=== PATIENT | male | born 1940 | race Caucasian/White ===

== ENCOUNTER 2019-04-12 10:30 | Outpatient (CLI) | payer MEDICARE, BC ==
[2014-04-12 10:40] VITALS: O2SAT 94
== END 2019-04-12 10:31 | disposition home or self-care (01) | DRG 556 ==
LOC: CONVCARE 10:30
PROVIDERS: ATTEND Orthopaedic Surgery
DX: M25.551 Pain in right hip (principal); Z96.642 Presence of left artificial hip joint; M16.11 Unilateral primary osteoarthritis, right hip
CPT/HCPCS: 73521

== ENCOUNTER 2019-04-26 11:30 | Outpatient (CLI) | payer MEDICARE, BC ==
[2014-04-12 10:40] VITALS: O2SAT 94
== END 2019-04-26 11:31 | disposition home or self-care (01) | DRG 556 ==
LOC: CONVCARE 11:30
PROVIDERS: ATTEND Orthopaedic Surgery
DX: M25.551 Pain in right hip (principal)